=== PATIENT | male | born 1995 | race Two or more races ===

== ENCOUNTER 2017-01-16 19:50 | Emergency (ER) | payer SELFPAY ==
[~2017-01-16] VITALS: Ht 180.3 cm; Wt 81.6 kg
[2017-01-16 20:13] VITALS: BP 143/84
== END 2017-01-16 22:42 | disposition home or self-care (01) ==
LOC: ER 19:50
DX: S00.83XA Contusion of other part of head, initial encounter (principal); M54.2 Cervicalgia; W18.39XA Other fall on same level, initial encounter; Y93.89 Activity, other specified; Y92.89 Other specified places as the place of occurrence of the external cause; Y99.8 Other external cause status
CPT/HCPCS: 70450; 72125